=== PATIENT | male | born 1955 | race Caucasian/White ===

== ENCOUNTER 2017-05-13 12:10 | Emergency (ER) | payer MEDICARE, MEDICAID ==
[~2017-05-13] VITALS: Ht 165.1 cm; Wt 60.9 kg
[~2017-05-13 12:10] MED LIST: /QUET10TA OR; ADVI200C5 PO; AMLO5TAB2 PO; QUET1TAB7 PO; SEROQUEL PO; TUMS500C PO; VITMTA PO; ZOLO100T OR
[2017-05-13] MEDS ORDERED: NS 500 ML IV ONE ×2 (12:30→13:45)
[2017-05-13 12:49] LABS: BASO % 0.4 % (0.0-1.0); EOS # 0.4 10^3/uL (0.0-0.50); EOS % 3.5 % (0.0-3.0); IMMATURE GRANULOCYTE % 0.8 % (0-0); LYMPH # 1.7 10^3/uL (1.5-4.5); LYMPH % 17.4 % (24.0-44.0); MEAN CORPUSCULAR HEMOGLOBIN 30.2 pg (27.0-33.0); MEAN CORPUSCULAR HGB CONC 33.6 g/dl (32.0-36.5); MEAN CORPUSCULAR VOLUME 89.8 fl (80.0-96.0); MONO # 0.7 10^3/uL (0.0-0.8); MONO % 7.5 % (0.0-5.0); NEUTROPHILS % 70.4 % (36.0-66.0); PLATELET COUNT, AUTOMATED 208 10^3/uL (150-450); RED CELL DISTRIBUTION WIDTH 13.6 % (11.5-14.5); WHITE BLOOD COUNT 9.9 10^3/uL (4.0-10.0)
[2017-05-13] MEDS ORDERED: NS 1,000 ML IV SCH (13:00)
[2017-05-13 13:16] LABS: ALBUMIN 3.7 GM/DL (3.2-5.2); ALBUMIN/GLOBULIN RATIO 1.23 (1.00-1.93); ALKALINE PHOSPHATASE 76 U/L (45-117); ALT/SGPT 21 U/L (12-78); ANION GAP 3 MEQ/L (8-16); AST/SGOT 14 U/L (7-37); BILIRUBIN,DIRECT < 0.1 MG/DL (0.0-0.2); BILIRUBIN,TOTAL 0.3 MG/DL (0.2-1.0); BLOOD UREA NITROGEN 19 MG/DL (7-18); CALCIUM LEVEL 8.8 MG/DL (8.8-10.2); CARBON DIOXIDE LEVEL 32 MEQ/L (21-32); CHLORIDE LEVEL 105 MEQ/L (98-107); CREATININE FOR GFR 0.78 MG/DL (0.70-1.30); GLOMERULAR FILTRATION RATE > 60.0 (>49); GLUCOSE, FASTING 97 MG/DL (80-110); POTASSIUM SERUM 4.4 MEQ/L (3.5-5.1); SODIUM LEVEL 140 MEQ/L (136-145); TOTAL PROTEIN 6.7 GM/DL (6.4-8.2)
[2017-05-13 14:35] VITALS: BP 131/82
--- NOTE | 2017-05-14 12:27 | ECGEPIP ---
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
== END 2017-05-13 15:03 | disposition home or self-care (01) ==
LOC: M ED 12:10 → EDBD 12:10 → M ED 15:03
DX: R42 Dizziness and giddiness (principal); Q85.00 Neurofibromatosis, unspecified; Z88.1 Allergy status to other antibiotic agents; J30.1 Allergic rhinitis due to pollen

== ENCOUNTER 2017-08-11 11:27 | Emergency (ER) | payer OTHER, MEDICARE, MEDICAID | END 2017-08-11 13:10 | disposition home or self-care (01) | LOC: M ED 11:27 | DX: S50.11XA Contusion of right forearm, initial encounter (principal); V09.29XA Pedestrian injured in traffic accident involving other motor vehicles, initial encounter; Y92.410 Unspecified street and highway as the place of occurrence of the external cause; I10 Essential (primary) hypertension; E78.00 Pure hypercholesterolemia, unspecified; F20.9 Schizophrenia, unspecified; F41.9 Anxiety disorder, unspecified; F33.9 Major depressive disorder, recurrent, unspecified; J30.89 Other allergic rhinitis; Z88.1 Allergy status to other antibiotic agents; F17.210 Nicotine dependence, cigarettes, uncomplicated | CPT/HCPCS: 73090 ==

== ENCOUNTER → 2018-09-30 | Outpatient (REF) ==
[~2018-09-30] MED LIST changes: -AMLO5TAB2 PO; +AMLO5TAB6 PO
== END ==
LOC: M LAB 19:59